=== PATIENT | male | born 1930 | race Caucasian/White ===

== ENCOUNTER → 2016-07-09 | Outpatient (CLI) | payer MEDICARE | END | disposition home or self-care (01) | LOC: YCHH 15:14 | PROVIDERS: ATTEND Family Medicine | DX: D64.9 Anemia, unspecified (principal); E78.5 Hyperlipidemia, unspecified; N18.9 Chronic kidney disease, unspecified; I12.9 Hypertensive chronic kidney disease with stage 1 through stage 4 chronic kidney disease, or unspecified chronic kidney disease ==

== ENCOUNTER → 2016-12-03 | Outpatient (CLI) | payer MEDICARE | END | disposition home or self-care (01) | LOC: YCHH 15:23 | PROVIDERS: ATTEND Family Medicine | DX: G20 Parkinson's disease (principal); E78.5 Hyperlipidemia, unspecified; N40.0 Benign prostatic hyperplasia without lower urinary tract symptoms; D64.9 Anemia, unspecified; Z12.5 Encounter for screening for malignant neoplasm of prostate | CPT/HCPCS: 80053; 80061; 85025; G0103 ==

== ENCOUNTER → 2017-06-10 | Outpatient (CLI) | payer MEDICARE | END | disposition home or self-care (01) | LOC: YCHH 12:18 | PROVIDERS: ATTEND Family Medicine | DX: E78.5 Hyperlipidemia, unspecified (principal); G20 Parkinson's disease ==

== ENCOUNTER → 2018-01-06 | Outpatient (CLI) | payer MEDICARE | LOC: YCHH 10:56 | PROVIDERS: ATTEND Family Medicine | DX: G20 Parkinson's disease (principal); E78.5 Hyperlipidemia, unspecified; J44.9 Chronic obstructive pulmonary disease, unspecified; D64.9 Anemia, unspecified ==

== ENCOUNTER → 2018-08-20 | Outpatient (CLI) | payer MEDICARE | LOC: YCHH 11:24 | PROVIDERS: ATTEND Family Medicine | DX: N39.0 Urinary tract infection, site not specified (principal) ==

== ENCOUNTER → 2018-08-24 | Outpatient (CLI) | payer MEDICARE | LOC: YCHH 12:03 | PROVIDERS: ATTEND Family Medicine | DX: R79.0 Abnormal level of blood mineral (principal); D64.9 Anemia, unspecified ==

== ENCOUNTER → 2019-02-02 | Outpatient (CLI) | payer MEDICARE | LOC: YCHH 11:10 | PROVIDERS: ATTEND Family Medicine | DX: G20 Parkinson's disease (principal); J44.9 Chronic obstructive pulmonary disease, unspecified; D64.9 Anemia, unspecified; E78.5 Hyperlipidemia, unspecified ==